=== PATIENT | female | born 1995 | race Caucasian/White ===

== ENCOUNTER 2017-03-16 21:38 | Outpatient (CLI) | payer MEDICAID ==
[2017-03-16 22:06] LABS: AMNISURE (ROM) NEGATIVE (NEGATIVE)
[2017-03-16 22:17] LABS: APPEARANCE,URINE CLEAR; BILIRUBIN,URINE NEGATIVE (NEGATIVE); GLUCOSE, URINE NEGATIVE (NEGATIVE); KETONES,URINE NEGATIVE (NEGATIVE); LEUKOCYTE ESTERASE,URINE NEGATIVE (NEGATIVE); NITRITE,URINE NEGATIVE (NEGATIVE); PROTEIN,URINE NEGATIVE (NEGATIVE); URINE SPECIFIC GRAVITY 1.003; UROBILINOGEN,URINE NEGATIVE mg/dL (<2.0)
[2017-03-16 22:31] LABS: URINE BARBITURATES SCREEN NEGATIVE; URINE METHADONE SCREEN NEGATIVE; URINE OPIATES LOW NEGATIVE; URINE PHENCYCLIDINE SCREEN NEGATIVE
--- NOTE | 2017-03-16 23:12 | Non Stress Test Report ---
Non Stress Test Datetime Report Generated by CPN: 03/16/2017 23:12 DEMOGRAPHIC Test Number: 1 INDICATION Indication for Study: Ordered by Provider MONITORING Monitor Explained: Monitor Explained; Test Explained; Patient Verbalized Understanding Time on Monitor: 03/16/2017 21:45 Time off Monitor: 03/16/2017 23:00 NST Duration: 75 NST INTERVENTIONS NST Interventions: None Physician Notified NST: Dr. Snider BABY A: [id number] BABY A Movement : Present Contraction Frequency : none FHR Baseline : 150 Accelerations : 15X15 Decelerations : None Variability : Moderate 6-25bpm NST Review: Meets Criteria for Reactive NST NST Review and Verified By : Thiago Rosenthal RN NST Results: Reactive NST REPORT Report Trigger: Send Report
== END 2017-03-16 23:05 | disposition home or self-care (01) ==
LOC: LC 21:38
PROVIDERS: ATTEND Obstetrics & Gynecology
PROC: 4A1HXCZ Monitoring of Products of Conception, Cardiac Rate, External Approach (ICD-10-PCS; principal; 2017-03-16)
DX: Z34.93 Encounter for supervision of normal pregnancy, unspecified, third trimester (principal); Z36 Encounter for antenatal screening of mother; Z3A.34 34 weeks gestation of pregnancy
CPT/HCPCS: 59025; 84112; 81001; 87081; 80307; Q0114

== ENCOUNTER 2017-03-23 01:36 | Outpatient (CLI) | payer MEDICAID ==
[2017-03-23 02:10] LABS: APPEARANCE,URINE CLEAR; BILIRUBIN,URINE NEGATIVE (NEGATIVE); GLUCOSE, URINE NEGATIVE (NEGATIVE); KETONES,URINE TRACE mg/dL (NEGATIVE); LEUKOCYTE ESTERASE,URINE NEGATIVE (NEGATIVE); NITRITE,URINE NEGATIVE (NEGATIVE); PROTEIN,URINE NEGATIVE (NEGATIVE); UROBILINOGEN,URINE NEGATIVE mg/dL (<2.0)
[2017-03-23 02:14] LABS: AMNISURE (ROM) NEGATIVE (NEGATIVE)
[2017-03-23 02:27] LABS: URINE BARBITURATES SCREEN NEGATIVE; URINE METHADONE SCREEN NEGATIVE; URINE OPIATES LOW NEGATIVE; URINE PHENCYCLIDINE SCREEN NEGATIVE
== END 2017-03-23 02:52 | disposition home or self-care (01) ==
LOC: LC 01:36
PROVIDERS: ATTEND Specialist
PROC: 4A1HXCZ Monitoring of Products of Conception, Cardiac Rate, External Approach (ICD-10-PCS; principal; 2017-03-23)
DX: O47.03 False labor before 37 completed weeks of gestation, third trimester (principal); Z3A.35 35 weeks gestation of pregnancy
CPT/HCPCS: 80307; 81001; 84112

== ENCOUNTER 2019-01-11 13:53 | Emergency (ER) | payer SELFPAY ==
[2019-01-11 14:03] VITALS: BP 112/59
[2019-01-11] MEDS ORDERED: PREDNISONE 20 MG TABLET PO ONE (14:14)
[2019-01-11] MEDS ORDERED: MUPIROCIN 2% OINTMENT 22 GM TP ONE (14:14)
--- NOTE | 2019-01-11 14:17 | ER Document Report ---
HPI - HPI Time Seen by Provider: 01/11/19 14:00 Pain Level: 3 Notes: Patient is a 23-year-old female presenting with chief complaint of rash to her right upper extremity, right breast and left side of her nose. She also reports sore throat. She states all symptoms have been present for 4 days. She denies any fevers, nausea, vomiting, diarrhea. - REPRODUCTIVE Reproductive: DENIES: : Past Medical History - General Information source: Patient - Social History Smoking Status: Never Smoker Frequency of alcohol use: None Drug Abuse: None Family History: Reviewed & Not Pertinent, Other Psychiatric Medical History: Reports: Hx Anxiety, Hx Attention Deficit Hyperactivity Disorder Surgical Hx: Negative - Immunizations Immunizations up to date: Yes Hx Diphtheria, Pertussis, Tetanus Vaccination: Yes Vertical Provider Document - CONSTITUTIONAL Notes: PHYSICAL EXAMINATION: GENERAL: Well-appearing, well-nourished and in no acute distress. HEAD: Atraumatic, normocephalic. EYES: Pupils equal round extraocular movements intact, conjunctiva are normal. ENT: Nares patent NECK: Normal range of motion LUNGS: No respiratory distress Musculoskeletal: Normal range of motion NEUROLOGICAL: Normal speech, normal gait. PSYCH: Normal mood, normal affect. SKIN: Honey crusted rash noted to right upper extremity, right breast, right flank and left side of nose. - INFECTION CONTROL TRAVEL OUTSIDE OF THE [place] IN LAST 30 DAYS: No Course - Re-evaluation Re-evalutation: Physical examination consistent with impetigo. Patient will be started on appr opriate medication. Diagnosis explained to patient, patient verbalizes understanding, patient declines any questions. The patient's emergency department workup and current diagnosis were explained t o the patient and or family. Follow-up instructions were provided. Medications if prescribed were discussed. Instructions for when to return to the emergency department including specific worrisome symptoms were discussed with the patient and/or family. - Vital Signs Vital signs: Temp Pulse Resp BP Pulse Ox 98.4 F 85 20 112/59 L 99 01/11/19 14:00 01/11/19 14:00 01/11/19 14:00 01/11/19 14:00 01/11/19 14:00 Discharge - Discharge Clinical Impression: Impetigo Condition: Stable Disposition: HOME, SELF-CARE Additional Instructions: Impetigo You have a skin infection called impetigo. This infection is caused by germs growing between the skin layers. It spreads easily and is quite contagious. The usual treatment is with oral antibiotics, along with washing the sores and application of an antibiotic ointment. There's a new prescription antibiotic ointment which may allow some cases of impetigo to be treated without pills. Healing takes about a week. All involved areas should recover with no scarring. If there is significant worsening, or if new symptoms (such as dark urine, fever, chills, or red streaks) arise, call the doctor or return for re-examina tion. Please take the steroids as directed, you were given the first dose here in the emergency department today so please take your next dose tomorrow. Use the Bactroban ointment at least twice daily to the affected areas do not apply any other creams to these areas. Please also take Benadryl 25 to 50 mg every 4-6 hours. A number for clinical lab specialist has been provided for you in case this does n ot improve. Return to the emergency department for any new or worsening symptoms. Prescriptions: Mupirocin [Bactroban 2% Ointment 22 gm] 1 applic TP TID #1 tube Referrals: DILMA TORRE, [ACTIVE STAFF] - Follow up as needed
== END 2019-01-11 14:28 | disposition home or self-care (01) ==
LOC: ER 13:53
DX: L01.00 Impetigo, unspecified (principal); J02.9 Acute pharyngitis, unspecified
CPT/HCPCS: 99282; J7512; J3490

== ENCOUNTER 2019-02-24 10:56 | Emergency (ER) | payer MEDICAID ==
[2019-02-24 11:01] VITALS: BP 115/63
--- NOTE | 2019-02-24 11:41 | ER Document Report ---
ED Medical Screen (RME) - General Chief Complaint: Vaginal Bleeding Stated Complaint: VAGINAL BLEEDING Time Seen by Provider: 02/24/19 11:30 Primary Care Provider: MELISSA BARBER CNM [Primary Care Provider] - Follow up as needed Notes: Patient is a 23-year-old female presents to emergency department with a chief complaint of vaginal bleeding. Patient reports that she was seen at the health department on 20 February for pelvic pain. She states that they performed a pelvic examination was unable to find the strings on her IUD. Patient reports she is supposed to have an ultrasound later this week. Patient states that he did check for STDs and was tested negative. Patient states she has had vaginal discharge that is clear and sometimes green and white. Patient states she was diagnosed with a yeast infection and did finish her Diflucan dosage. Patient reports she started having vaginal spotting yesterday and is now bleeding like she is on her menstrual cycle. Patient reports suprapubic pelvic pain. Patient reports this feels like a contraction. Patient states she is felt lightheaded. TRAVEL OUTSIDE OF THE [place] IN LAST 30 DAYS: No - Related Data Allergies/Adverse Reactions: azithromycin [Azithromycin] Allergy (Verified 02/24/19 10:57) Past Medical History - Social History Chew tobacco use (# tins/day): No Drug Abuse: None Renal/ Medical History: Denies: Hx Peritoneal Dialysis Psychiatric Medical History: Reports: Hx Anxiety, Hx Attention Deficit Hyperactivity Disorder - Immunizations Immunizations up to date: Yes Hx Diphtheria, Pertussis, Tetanus Vaccination: Yes History of Influenza Vaccine for 03/2017 - 08/2017 Season: No Physical Exam - Vital signs Vitals: Temp Pulse Resp BP Pulse Ox 98.4 F 76 15 115/63 99 02/24/19 11:00 02/24/19 11:00 02/24/19 11:00 02/24/19 11:00 02/24/19 11:00 - Abdominal Inspection: Normal Distension: No distension Bowel sounds: Normal Tenderness: Nontender Organomegaly: No organomegaly Course - Re-evaluation Re-evalutation: 02/24/19 11:40 I have greeted and performed a rapid initial assessment of this patient. A comprehensive ED assessment and evaluation of the patient, analysis of test results and completion of the medical decision making process will be conducted by additional ED providers. - Vital Signs Vital signs: Temp Pulse Resp BP Pulse Ox 98.4 F 76 15 115/63 99 02/24/19 11:00 02/24/19 11:00 02/24/19 11:00 02/24/19 11:00 02/24/19 11:00 Doctor's Discharge - Discharge Referrals: MELISSA BARBER CNM [Primary Care Provider] - Follow up as needed
[2019-02-24 12:00] LABS: ABSOLUTE EOSINOPHILS # (AUTO) 0.1 10^3/uL (0.0-0.6); ABSOLUTE LYMPHOCYTES (AUTO) 2.6 10^3/uL (0.5-4.7); ABSOLUTE MONOCYTES (AUTO) 0.5 10^3/uL (0.1-1.4); ABSOLUTE NEUT (AUTO) 2.3 10^3/uL (1.7-8.2); BASOPHILS % (AUTO) 0.4 % (0-2); EOSINOPHILS % (AUTO) 1.5 % (0-6); HEMATOCRIT 41.1 % (36.0-47.0); HEMOGLOBIN 13.8 g/dL (12.0-15.5); LYMPHOCYTES % (AUTO) 46.5 % (13-45); MEAN CORPUSCULAR HEMOGLOBIN 29.2 pg (27.0-33.4); MEAN CORPUSCULAR HGB CONC 33.6 g/dL (32.0-36.0); MEAN CORPUSCULAR VOLUME 87 fl (80-97); MONOCYTES % (AUTO) 8.9 % (3-13); PLATELET COUNT 185 10^3/uL (150-450); RED BLOOD COUNT 4.74 10^6/uL (3.72-5.28); RED CELL DISTRIBUTION WIDTH 12.9 % (11.5-14.0); SEGMENTED NEUTROPHILS % (AUTO) 42.7 % (42-78); TOTAL CELLS COUNTED % (AUTO) 100 %; WHITE BLOOD COUNT 5.5 10^3/uL (4.0-10.5)
[2019-02-24 12:06] LABS: APPEARANCE,URINE CLOUDY; BILIRUBIN,URINE NEGATIVE (NEGATIVE); COLOR,URINE RED; GLUCOSE, URINE NEGATIVE (NEGATIVE); KETONES,URINE NEGATIVE (NEGATIVE); LEUKOCYTE ESTERASE,URINE SMALL (NEGATIVE); NITRITE,URINE NEGATIVE (NEGATIVE); PROTEIN,URINE 100 mg/dL (NEGATIVE); URINE SPECIFIC GRAVITY 1.021; UROBILINOGEN,URINE NEGATIVE mg/dL (<2.0)
[2019-02-24 12:17] LABS: ALBUMIN 4.7 g/dL (3.5-5.0); ALKALINE PHOSPHATASE 76 U/L (38-126); ANION GAP 10 (5-19); ASPARTATE AMINO TRANSFERASE 18 U/L (14-36); BILIRUBIN,DIRECT 0.1 mg/dL (0.0-0.4); BILIRUBIN,TOTAL 0.5 mg/dL (0.2-1.3); BLOOD UREA NITROGEN 13 mg/dL (7-20); CALCIUM 9.8 mg/dL (8.4-10.2); CARBON DIOXIDE 29 mmol/L (22-30); CHLORIDE 103 mmol/L (98-107); POTASSIUM 4.6 mmol/L (3.6-5.0); TOTAL PROTEIN 7.4 g/dL (6.3-8.2)
[2019-02-24 12:19] LABS: GLUCOSE 62 mg/dL (75-110)
--- NOTE | 2019-02-24 12:42 | RADIOLOGY REPORT (SQ) ---
EXAM DESCRIPTION: U/S NON OB PEL TV W/DOPPLER COMPLETED DATE/TIME: 02/24/2019 12:33 pm REASON FOR STUDY: pelvic pain COMPARISON: 01/24/2011. TECHNIQUE: Dynamic and static grayscale images acquired of the pelvis via transvaginal approach and recorded on PACS. Additional selected color Doppler and spectral images recorded. LIMITATIONS: None. FINDINGS: UTERUS: Contour normal. No mass. ENDOMETRIAL STRIPE: No focal or generalized thickening. No masses. IUD in place. CERVIX: No nabothian cysts. RIGHT OVARY AND DOPPLER: Normal size. No worrisome masses. Normal arterial vascular flow without evid ence for torsion. LEFT OVARY AND DOPPLER: Normal size. 1.8 cm simple cyst. No worrisome masses. Normal arterial vascu lar flow without evidence for torsion. FREE FLUID: None noted. OTHER: No other significant finding. MEASUREMENTS: UTERUS: 4.1 x 5.1 x 9.3 cm. ENDOMETRIAL STRIPE: 3.5 mm. RIGHT OVARY: 2.4 x 2.4 x 3.6 cm. LEFT OVARY: 1.3 x 2.4 x 2.7 cm. IMPRESSION: SMALL SIMPLE CYST IN THE LEFT OVARY. IUD IN PLACE. OTHERWISE UNREMARKABLE TRANSVAGINAL PELVIC ULTRASOUND. TECHNICAL DOCUMENTATION: JOB ID: [id number] [employer]- All Rights Reserved Rev-11/10 Reading location - IP/workstation name: [email or web address]
[2019-02-24 13:27] LABS: RBCS (WET MOUNT) 4+ RBCS SEEN; T.VAGINALIS (WET MOUNT) NO TRICHOMONAS SEEN; WBCS (WET MOUNT) RARE WBCS SEEN; YEAST (WET MOUNT) NO YEAST SEEN
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
[2019-02-24 14:56] LABS: CHLAM PCR NOT DETECTED (NOT DETECT)
== END 2019-02-24 14:22 | disposition home or self-care (01) ==
LOC: ER 10:56
DX: R10.2 Pelvic and perineal pain (principal); W50.0XXA Accidental hit or strike by another person, initial encounter; N93.9 Abnormal uterine and vaginal bleeding, unspecified; Z97.5 Presence of (intrauterine) contraceptive device; Z88.1 Allergy status to other antibiotic agents; Z87.891 Personal history of nicotine dependence
CPT/HCPCS: 36415; 76830; 80053; 81001; 81025; 85025; 87210; 87491; 87591; 93976; 99284

== ENCOUNTER → 2019-05-14 | Outpatient (CLI) | payer MEDICAID ==
[2019-05-14 14:51] LABS: BACTERIA (WET MOUNT) 4+ BACTERIA SEEN; EPITHELIALS (WET MOUNT) 3+ EPITHELIALS SEEN; T.VAGINALIS (WET MOUNT) NO TRICHOMONAS SEEN; WBCS (WET MOUNT) 3+ WBCS SEEN; YEAST (WET MOUNT) NO YEAST SEEN
[2019-05-14 16:27] LABS: CHLAM PCR NOT DETECTED (NOT DETECT)
== END ==
LOC: LAB 14:39
PROVIDERS: ATTEND Nurse Practitioner Acute Care
DX: R30.0 Dysuria (principal)
CPT/HCPCS: 87086; 87210; 87491; 87591

== ENCOUNTER 2020-02-22 23:53 | Emergency (ER) | payer MEDICAID ==
--- NOTE | 2020-02-23 04:08 | RADIOLOGY REPORT (SQ) ---
EXAM DESCRIPTION: XR CHEST 2 VIEWS COMPLETED DATE/TME: 02/23/2020 03:03 CLINICAL HISTORY: 24 years, Female, cough COMPARISON: None. NUMBER OF VIEWS: Two TECHNIQUE: Two views of the chest LIMITATIONS: None. FINDINGS: The lungs are clear. The heart is normal in size. There is no pneumothorax or fracture. There is no fracture. IMPRESSION: No acute cardiopulmonary abnormality. copyright 2010 [employer]- All Rights Reserved
--- NOTE | 2020-02-23 04:55 | ER Document Report ---
ED Respiratory Problem - General Chief Complaint: Sore Throat Stated Complaint: SHORTNESS OF BREATH/CHEST PAIN/COUGH Time Seen by Provider: 02/23/20 02:43 Primary Care Provider: LYNNE HAAS FNP-C [Primary Care Provider] - Follow up as needed Mode of Arrival: Ambulatory Information source: Patient Notes: Patient is a 24 a female comes emergency room complaining of wheezing and upper respiratory symptoms. Patient states that she was tested for COVID-19 at the [facility] on Monday and with was negative. She has a history of asthma in the past. She has been doing her inhalers but every 2 hours having a dry nonproductive cough. Patient also states that she has been wheezing slightly. She denies any known exposures and she is a [id number] . She stopped smoking approximately 2 weeks ago. She also complains of a sore throat with swollen glands in the anterior cervical nodes. TRAVEL OUTSIDE OF THE [place] IN LAST 30 DAYS: No - HPI Patient complains to provider of: Asthma, Cough, Short of breath Onset: Other - 1 month worse past 2 days Duration: Continuous Initiating Event: URI Quality of pain: No pain Severity: Moderate Pain Level: 3 Context: Hx asthma Short of Breath: Moderate Cough: Nonproductive At home treatment: Bronchodilators Associated symptoms: Runny nose, Sore Throat. denies: Fever Similar symptoms previously: Yes Recently seen / treated by doctor: No - Related Data Allergies/Adverse Reactions: azithromycin [Azithromycin] Allergy (Verified 02/24/19 10:57) Past Medical History - General Information source: Patient - Social History Smoking Status: Current Every Day Smoker Cigarette use (# per day): Yes - 3 cigarettes a day Chew tobacco use (# tins/day): No Smoking Education Provided: Yes Frequency of alcohol use: None Drug Abuse: Marijuana Lives with: Family Family History: Reviewed & Not Pertinent, Other Patient has homicidal ideation: No Renal/ Medical History: Denies: Hx Peritoneal Dialysis Psychiatric Medical History: Reports: Hx Anxiety, Hx Attention Deficit Hyperactivity Disorder - Immunizations Immunizations up to date: Yes Hx Diphtheria, Pertussis, Tetanus Vaccination: Yes Review of Systems - Review of Systems Constitutional: See HPI EENT: Nose congestion, Nose discharge, Sinus pressure Cardiovascular: No symptoms reported Respiratory: See HPI, Cough, Short of breath, Wheezing Gastrointestinal: No symptoms reported Genitourinary: No symptoms reported Female Genitourinary: No symptoms reported Musculoskeletal: No symptoms reported Skin: No symptoms reported Hematologic/Lymphatic: No symptoms reported Neurological/Psychological: No symptoms reported Physical Exam - Vital signs Vitals: Temp Pulse Resp BP Pulse Ox 98.0 F 80 18 127/75 H 99 02/23/20 03:04 02/23/20 03:04 02/23/20 03:04 02/23/20 03:04 02/23/20 03:04 Interpretation: Normal - Notes Notes: PHYSICAL EXAMINATION: GENERAL: Well-appearing, well-nourished and in no acute distress. HEAD: Atraumatic, normocephalic. EYES: Pupils equal round and reactive to light, extraocular movements intact, c onjunctiva are normal. ENT: Examination patient's head and upper airway show nasal mucosa moderately erythematous edematous with some rhinorrhea noted. Bilateral nasal congestion is also noted. Also noted is some left-sided frontal sinus tenderness to palpation. Maxillary sinuses are nontender. Bilateral TMs normal in appearance no retraction or bulging noted. Examination posterior pharynx shows mild erythema no exudates are seen no enlargement of tonsils. Uvula is midline. There is some mild drainage yellowish in color. NECK: Normal range of motion, examination patient's neck does show some mild bilateral anterior cervical lymphadenopathy to palpation. Patient displays no signs of meningismus. Is full range of motion without any discomfort or pain. LUNGS: Auscultation patient's lungs show bilateral breath sounds but sounds decreased throughout a faint end expiratory wheeze noted bilateral upper lobes. HEART: Regular rate and rhythm without murmurs Musculoskeletal: Normal range of motion, no pitting or edema. No cyanosis. NEUROLOGICAL: . Normal speech, normal gait. Normal sensory, motor exams PSYCH: Normal mood, normal affect. SKIN: Warm, Dry, normal turgor, no rashes or lesions noted. Course - Re-evaluation Re-evalutation: 02/23/20 05:26 Patient's x-rays and labs were negative for any acute findings. Primarily her rapid strep was negative for strep pharyngitis. Mostly a believe this to be a sinus presentation with the left frontal sinus being tender to palpation and with the drainage in the posterior pharynx. I am not going to treat patient with any antibiotics at this time. I am going to place her on Flonase with Sudafed and albuterol inhaler. - Vital Signs Vital signs: Temp Pulse Resp BP Pulse Ox 98.0 F 80 18 127/75 H 99 02/23/20 04:05 02/23/20 03:04 02/23/20 03:04 02/23/20 03:04 02/23/20 04:00 Discharge - Discharge Clinical Impression: Upper respiratory infection Qualifiers: URI type: unspecified URI Qualified Code(s): J06.9 - Acute upper respiratory infection, unspecified Asthma Qualifiers: Asthma severity: unspecified severity Asthma persistence: unspecified Asthma complication type: unspecified Qualified Code(s): J45.909 - Unspecified asthma, uncomplicated Disposition: HOME, SELF-CARE Instructions: Asthma ([facility]), Upper Respiratory Illness ([facility]) Additional Instructions: Only rest. Medication prescribed. As we discussed I believe this is be a upper respiratory thing with an acute asthmatic exacerbation. We will place you on the Flonase nasal spray use as directed. Use your inhaler every 4 hours as needed. And take the Sudafed to dry up the drainage template this will give you your cough and other symptoms. Should you have any other concerns or problems you return to ER for reevaluation but highly suggest follow-up with your primary care provider for continuation of care and further intervention. Prescriptions: Fluticasone Propionate [Flonase Nasal [place] 50 Mcg/[place] 16 gm] 2 sprays NASL Q12 #1 inhaler Albuterol Sulfate [Proair HFA Inhalation Aerosol 8.5 gm MDI] 2 puff IH Q4H PRN #1 mdi PRN Reason: Pseudoephedrine HCl [Sudafed 12 Hour] 120 mg PO BID #20 tablet.er Forms: Return to Work Referrals: LYNNE HAAS FNP-C [Primary Care Provider] - Follow up as needed
[2020-02-23 05:47] VITALS: BP 117/74
== END 2020-02-23 05:47 | disposition home or self-care (01) ==
LOC: ER 23:53
DX: J06.9 Acute upper respiratory infection, unspecified (principal); J45.909 Unspecified asthma, uncomplicated; R05 Cough; J02.9 Acute pharyngitis, unspecified; R59.0 Localized enlarged lymph nodes; R06.02 Shortness of breath; R09.81 Nasal congestion; J34.89 Other specified disorders of nose and nasal sinuses; F12.10 Cannabis abuse, uncomplicated; Z79.899 Other long term (current) drug therapy; Z88.1 Allergy status to other antibiotic agents
CPT/HCPCS: 71046; 87070; 87077; 87880; 99283